=== PATIENT | female | born 1990 | race Caucasian/White ===

== ENCOUNTER 2018-01-29 02:41 | Inpatient (IN) | payer OTHER, MEDICAID ==
[2018-01-29] MEDS ORDERED: BETAMETHASONE IM SYRINGE IM SCH (03:15)
--- NOTE | 2018-01-29 03:26 | PDGENHP ---
History and Physical History and Physical: Care: [facility] HPI: Pt reports "cramping" all day that has progressively been getting worse. Denies bloody show or leaking fluid. Voiding frequently but denies pain with urination. Pt was noted to have a breech presentation at her last visit and was going to be scheduled for a version. Patient is a 27 yo G 1 P 0 @ 35.5 weeks that presents to L&D with complaints of lower abdominal cramping EDC: 02/28/2018 which is based on LMP: 05/24/2017 which is known and consistent with Ultrasound at 13 weeks. Her is complicated by: depression and anxiety, breech presentation, carpal tunnel bilaterally. Traveled to [facility] in May - Zika virus has been noted in the area Review of Systems: Constitutional: Denies any fever, chills, or fatigue HEENT: denies any visual changes, difficulty swallowing, hearing loss Cardiovascular: Denies any chest pain, palpitations, leg swelling Respiratory: denies any cough, wheezing, or shortness of breathe GI: Reports some nausea. Denies vomiting, diarrhea, constipation : denies any dysuria, urgency, frequency, vaginal bleeding Musculoskeletal: denies any muscle or bone pain Skin: denies any rashes Neuro: denies any headache, seizures, lightheadedness, dizziness, or loss of consciousness Psychiatric: Current issues of anxiety and depression being treated with zoloft. HISTORY: Previous OB history: None Past medical history: Migraine without aura, anxiety treated with propanolol and lexapro that she stopped with . Past surgical history: tonsillectomy Social: Denies any alcohol or tobacco. Marijuana use prior to , tested negative 1st trimester. Family history: Not relevant Medications: PNV, zoloft 50 mg daily, magnesium Allergies (list reaction): NKDA LABS: Rh: AB+ ABS: Neg Rubella: Immune HbsAg: NR HIV: NR VDRL: NR 1hr: 103 GC: Neg Chlamydia: Neg Pap: Normal GBS: unknown BMI: (prepreg) 20.5 PHYSICAL EXAM: Constitutional: WN, A&Ox3, anxious HEENT: normocephalic atraumatic, supple Skin: Warm, dry, intact Heart: RRR, no murmur Chest: CTA-B Abdomen: Soft, nontender, gravid SVE: 1/100/-2 cervix anterior and soft, BBOW, breech presentation Extremities:neg edema, negative homans sign Neuro: grossly normal Psych: normal affect assessment: FHT baseline 130 +accels, no decels, moderate variability Contractions: q 3 minutes palpated; not picking up well on monitor Assessment: 1) 27 yo G 1 P 0 with IUP@ 35.5 2) contractions, ripe cervix, breech presentation 3) GBS unknown 4) Cat 1 FHR tracing Plan: 1) Admit to L&D 2) 12.5 mg betamethasone IM q 24 hours 3) CBC, type and screen, PIH labs including protein and creatinine ratio, UA 4) Start IV, fluid bolus of LR 1000 ml 5) 4 mg zofran as needed for nausea 6) Dr Mccormick advised of admission and discussed POC. Reassess for cervical change as indicated to determine need to proceed to csection.
[2018-01-29] MEDS ORDERED: LR 1,000 ML IV SCH ×2 (03:30→07:00)
[2018-01-29] MEDS ORDERED: ONDANSETRON 4 MG/2 ML VIAL IVP PRN ×3 (03:37→06:41)
[2018-01-29] MEDS ORDERED: ONDANSETRON 4 MG/2 ML VIAL ONE ×2 (03:37→07:27)
[2018-01-29 03:41] LABS: PLATELET COUNT 254 10^3/uL (150-400)
[2018-01-29] MEDS ORDERED: fentaNYL 100 MCG/2 ML INJ IVP PRN ×2 (03:52→06:41)
[2018-01-29] MEDS ORDERED: LR 500 ML IV ONE (06:31)
[2018-01-29] MEDS ORDERED: ceFAZolin 2 GM/DEXTROSE 100 ML IV ONE (06:31)
[2018-01-29] MEDS ORDERED: morphINE PF 5 MG/10 ML INJ ONE (06:40)
[2018-01-29] MEDS ORDERED: fentaNYL 100 MCG/2 ML INJ ONE (06:40)
[2018-01-29] MEDS ORDERED: OXYTOCIN 100 UNITS/10 ML VIAL ONE (06:41)
[2018-01-29] MEDS ORDERED: LABETALOL HCL 5 MG/ML 20 ML MDV IVP PRN (06:41)
[2018-01-29] MEDS ORDERED: PHENYLEPHRINE HCL 100 MCG/ML SYR IVP PRN (06:41)
[2018-01-29] MEDS ORDERED: NALOXONE HCL 0.4 MG/ML INJ IVP PRN (06:41)
--- NOTE | 2018-01-29 06:45 | PREANESOB ---
Obstetric Pre-Anesthesia Info - General Info Proposed Procedure: C/S : 1 Para: 0 HAILEY: 02/28/18 Gestational Age: 35 week(s) and 5 day(s) - Info Status: Premature, Mckeon - Labor Status Cervical Dilation per last OB SVE: 5 Section History: Primary Indications for Current Section: Breech Labor Epidural: No Anesthesia Allergies/Adverse Reactions: Allergy/AdvReac Type Severity Reaction Status Date / Time No Known Allergies Allergy Unverified 04/20/12 13:53 Home Medications: Medication Instructions Recorded Magnesium Citrate 500 mg PO DAILY 01/29/18 No.123/Iron/Folic AC 1 tab PO DAILY 01/29/18 Zoloft 50mg (*) PO DAILY 01/29/18 Visit Medications: Generic Name Dose Route Start Last Admin Trade Name Freq PRN Reason Stop Dose Admin Betamethasone Acet/Betameth SodPhos 12 mg 01/29/18 03:15 01/29/18 03:40 Celestone Im Syringe IM 01/30/18 03:16 12 mg Q24H JOHN Administration Fentanyl 50 mcg 01/29/18 03:52 01/29/18 05:07 Sublimaze IVP 02/08/18 03:51 50 mcg Q2HRS PRN Administration Pain, Severe Unable to Take PO Lactated Ringer's 1,000 mls @ 0 mls/hr 01/29/18 03:30 01/29/18 03:39 Lr IV 07/28/18 03:29 1,000 mls CONT JOHN Administration Wide Open Cefazolin Sodium/Dextrose 100 mls @ 200 mls/hr 01/29/18 06:31 01/29/18 06:41 Ancef 2 Gm IV 01/29/18 07:00 100 mls ONCALL ONE Administration Protocol Lactated Ringer's 1,000 mls @ 125 mls/hr 01/29/18 07:00 Lr IV 01/30/18 06:59 CONT JOHN Ondansetron HCl 4 mg 01/29/18 03:37 01/29/18 03:47 Zofran IVP 07/28/18 03:36 4 mg Q4HRS PRN Administration Nausea/Vomiting, Can't Take PO Discontinued Medications Generic Name Dose Route Start Last Admin Trade Name Freq PRN Reason Stop Dose Admin Fentanyl Confirm 01/29/18 06:40 Sublimaze Administered 01/29/18 06:41 Dose 100 mcg .ROUTE .STK-MED ONE Lactated Ringer's 500 mls @ 0 mls/hr 01/29/18 06:31 Lr IV 01/29/18 06:32 ONCE ONE As Directed Morphine Sulfate Confirm 01/29/18 06:40 Morphine Pf 5 Mg/10 Ml Administered 01/29/18 06:41 Dose 5 mg .ROUTE .STK-MED ONE Ondansetron HCl Confirm 01/29/18 03:37 Zofran Administered 01/29/18 03:38 Dose 4 mg .ROUTE .STK-MED ONE Oxytocin Confirm 01/29/18 06:41 Pitocin Administered 01/29/18 06:42 Dose 100 units .ROUTE .STK-MED ONE - Anesthesia History Response to Local Anesthetics: Normal Anesthesia & Operative History: No Prior Problems - Vital Signs Height/Weight (Nursing): Height 161.29 cm Weight 68.492 kg - Focused Exam Neck exam: FROM Mallampati Score: Class 2 Mouth exam: normal dental/mouth exam Pulmonary: no respiratory distress, no rales or rhonchi Cardiovascular: regular rate and rhythym, no murmur, rub, or gallop Labs: 01/29/18 03:33 01/29/18 03:33 Patient ABO/Rh AB POSITIVE 01/29/18 03:33 Uric Acid 5.5 mg/dL (2.5-6.8) 01/29/18 03:33 Total Bilirubin 0.2 mg/dL (0.1-1.4) 01/29/18 03:33 Conjugated Bilirubin 0.0 mg/dL (0.0-0.5) 01/29/18 03:33 Unconjugated Bilirubin 0.2 mg/dL (0.0-1.1) 01/29/18 03:33 AST 22 IU/L (14-46) 01/29/18 03:33 ALT 17 IU/L (9-52) 01/29/18 03:33 Lactate Dehydrogenase 602 IU/L (313-618) 01/29/18 03:33 - Plan Consent Signed and on Chart: Yes Patient/Guardian Understands and Agrees to Plan: Yes
[2018-01-29] MEDS ORDERED: AMMONIA AROMATIC 1 EACH AMP IH ONE (06:52)
[2018-01-29] MEDS ORDERED: LIDOCAINE 1% 300 MG/30 ML SDV ONE (06:52)
[2018-01-29] MEDS ORDERED: OLIVE OIL 118 ML BTL ONE (06:52)
[2018-01-29] MEDS ORDERED: OXYTOCIN 10 UNIT/ML VIAL ONE (06:53)
[2018-01-29] MEDS ORDERED: MISOPROSTOL 200 MCG TAB ONE (06:53)
[2018-01-29] MEDS ORDERED: TERBUTALINE SULFATE 1 MG/ML VIAL ONE (06:53)
[2018-01-29] MEDS ORDERED: PHENYLEPHRINE HCL 100 MCG/ML SYR ONE (07:09)
--- NOTE | 2018-01-29 08:05 | POSTANESTH ---
Post Anesthetic Evaluation Cardiovascular Status: Normal, Stable, Similar to Pre-Op Cond Respiratory Status: Normal, Stable, Similar to Pre-op Cond. Level of Consciousness/Mental Status: Can Participate in Eval, Alert and Oriented Pain Control: Adequate, Prn Tx Ordered Nausea/Vomiting Control: Adequate, Prn Tx Ordered Complications Possibly Related to Anesthesia: None Noted
--- NOTE | 2018-01-29 08:21 | OBDEL ---
Info Type: Primary Presentation at Delivery: Breech L&D Analgesia/Anesthesia Type: Spinal GBS+: No (unknown) Intrapartum Medications: Generic Name Dose Route Start Last Admin Trade Name Freq PRN Reason Stop Dose Admin Betamethasone Acet/Betameth SodPhos 12 mg 01/29/18 03:15 01/29/18 03:40 Celestone Im Syringe IM 01/30/18 03:16 12 mg Q24H JOHN Administration Fentanyl 50 mcg 01/29/18 03:52 01/29/18 05:07 Sublimaze IVP 02/08/18 03:51 50 mcg Q2HRS PRN Administration Pain, Severe Unable to Take PO Lactated Ringer's 1,000 mls @ 0 mls/hr 01/29/18 03:30 01/29/18 03:39 Lr IV 07/28/18 03:29 1,000 mls CONT JOHN Administration Wide Open Ondansetron HCl 4 mg 01/29/18 03:37 01/29/18 03:47 Zofran IVP 07/28/18 03:36 4 mg Q4HRS PRN Administration Nausea/Vomiting, Can't Take PO Discontinued Medications Generic Name Dose Route Start Last Admin Trade Name Freq PRN Reason Stop Dose Admin Cefazolin Sodium/Dextrose 100 mls @ 200 mls/hr 01/29/18 06:31 01/29/18 06:41 Ancef 2 Gm IV 01/29/18 07:00 100 mls ONCALL ONE Administration Protocol Indications for Delivery: Spontaneous Labor, SROM Vaginal Delivery - Labor and Delivery Onset of Contractions Date: 01/29/18 Onset of Contractions Time: 19:00 Operative Report - Delivery Pre-op Diagnoses: breech presentation in labor, SROM Post-op Diagnoses: same History of Prior Section: No Nulliparous Prior to Delivery: Yes Indications for Current Section: Breech Procedure: Unscheduled, Low Transverse Surgeon: Phuong Mccormick Blast Furnace Keeper Helper: Ghislaine Jin Anesthesiologist: Floyd Davis Complications: None IV Fluid (ml): 800 EBL: 900 Corbin Data HAILEY: 02/28/18 Gestational Age: 35 week(s) and 5 day(s) Mckeon Delivery Date: 01/29/18 Delivery Time: 07:04 Sex of : Female Weight (gm): 2510 g Score (1 Min): 8 Score (5 Min): 8 ICD10 Worksheet Patient Problems: Problems Problem Status Onset Breech presentation Acute - ICD10 Problem Qualifiers (1) Breech presentation
--- NOTE | 2018-01-29 08:25 | POSTOPPROG ---
Post Op Note Date of Operation: 01/29/18 Surgeon: Phuong Mccormick Supervisor Tree Trimming: Ghislaine Jin Anesthesiologist: Floyd Escobar Anesthesia: Spinal Pre-op Diagnosis: breech presentation in labor, SROM Post-op Diagnosis: same Indication: same Procedure: primary low transverse c/s Findings: normal appearing uterus, tubes and ovaries, dalila breech presentation Inf/Abcess present in the surg proc area at time of surgery?: No Total fluids administered: 800 Complications: none
[2018-01-29] MEDS ORDERED: OXYTOCIN/RINGERS LACTATE 1,000 ML IV SCH (08:30)
[2018-01-29] MEDS: KETOROLAC 30 MG/1 ML SDV IVP SCH ×3 (09:03→20:52)
--- NOTE | 2018-01-29 11:05 | GOP ---
DATE OF OPERATION: 01/29/2018 SURGEON: Phuong Mccormick MD ARMOR RECONNAISSANCE SPECIALIST: PARKER Edouard. ANESTHESIA: Spinal. ANESTHESIOLOGIST: Floyd Davis MD. PREOPERATIVE DIAGNOSIS: 1. Breech presentation in labor. 2. Spontaneous rupture of membranes. 3. Intrauterine at 35 weeks and 5 days. POSTOPERATIVE DIAGNOSIS: 1. Breech presentation in labor. 2. Spontaneous rupture of membranes. 3. Intrauterine at 35 weeks and 5 days. PROCEDURE PERFORMED: Primary Low Transverse section FINDINGS: Normal appearing uterus, tubes and ovaries. Delivery of infant from dalila breech presentation low in the pelvis. ESTIMATED BLOOD LOSS: 900 mL. INDICATIONS: 27-year-old 1 female at 35 weeks and 5 days presented with contractions and was 1 cm dilated. While she was being observed, her water broke and she quickly progressed to 5 cm. The decision was made to immediately proceed with a primary low transverse section. DESCRIPTION OF PROCEDURE: Written informed consent was reviewed with the patient and obtained. She was taken to the operating room where spinal anesthesia was placed. A urinary catheter was quickly placed. Her abdomen was covered with Betadine. 2 separate bottles were used, but due to the rapidity of her labor, scrubbing was not performed. 2 g of Ancef was administered on- call to the operating room. She was draped in the sterile fashion. A Pfannensteil incision was made and taken down sharply to the fascia. The fascial incision was extended laterally in a sharp fashion. The rectus muscles were dissected away from the fascia in a sharp and blunt fashion. The rectus muscles were in the midline, and the peritoneum was entered bluntly. A bladder blade was inserted. The vesicouterine peritoneum was elevated and incised and a bladder flap was created. The hysterotomy was made sharply and this was extended laterally using the bandage scissors. The buttocks were able to be elevated out of the pelvis and delivered through the hysterotomy. Each leg was able to be flexed at the knee, the hip externally rotated and then delivered. With some fundal pressure the remainder of the body and vertex was easily delivered, with the body being supported by a damp towel. Cord clamping was delayed for 1 minute. The cord was then cut. The was handed to the awaiting nurse practitioner, who was Latasha Glass. A cord segment was obtained, which was later discarded. Cord blood was also obtained. The uterus was massaged and the placenta delivered. The uterus was exteriorized and cleared of all clots and debris x2. The hysterotomy was repaired with 0 Monocryl in a running locked fashion. A 2nd imbricating layer was placed. Hemostasis was obtained with the addition of cautery. The posterior cul-de-sac and gutters were irrigated and cleared of all clots and debris. The uterus was replaced into the abdomen. Evelyn was used to maintain hemostasis on a few of the small areas which were slowly oozing around the hysterotomy repair. The fascia was then closed with 0 PDS in a running fashion. Vinicius's fascia was closed with 3-0 Monocryl in a running fashion. The skin was then closed with 4.0 Monocryl. The incision was covered with Mastisol followed by Steri-Strips and a sterile dressing. Fundal massage expressed some clots from the lower uterine segment. The patient was taken to the recovery room in stable condition. Sponge, lap, and needle counts were correct x2. TOTAL IV FLUIDS: 1000 mL. URINE OUTPUT: 400 mL. /[id number]/MODL MTDD
[2018-01-29] MEDS: ACETAMINOPHEN 325 MG TAB PO SCH ×3 (11:16→20:51)
[2018-01-29] MEDS: IBUPROFEN 600 MG TAB PO SCH ×2 (11:17→15:26)
--- NOTE | 2018-01-29 16:02 | OBPP ---
Progress Note Assessment/Plan: Assessment: s/p PCS at 35 5/7 weeks secondary to malpresentation and active labor POD # 0.5 - pt is stable Plan: Continue routine post-op care Encourage IS and ambulation Adequate uo Cont analgesics as ordered H/H in am 01/3001/29/18 16:03 Subjective/ Course: 01/29/18 16:05 Pt seen and examined. Doing much better, pain is overall well controlled. Heating pad is helping. Pt is not OOB yet, marco liquids, salazar in place and no flatus yet. Minimal bleeding noted. Denies any f/c/n/v/CP or SOB. Pumping so far and baby girl is stable in NICU. Objective: 01/29/18 03:33 01/29/18 03:33 Patient ABO/Rh AB POSITIVE 01/29/18 03:33 Uric Acid 5.5 mg/dL (2.5-6.8) 01/29/18 03:33 Total Bilirubin 0.2 mg/dL (0.1-1.4) 01/29/18 03:33 Conjugated Bilirubin 0.0 mg/dL (0.0-0.5) 01/29/18 03:33 Unconjugated Bilirubin 0.2 mg/dL (0.0-1.1) 01/29/18 03:33 AST 22 IU/L (14-46) 01/29/18 03:33 ALT 17 IU/L (9-52) 01/29/18 03:33 Lactate Dehydrogenase 602 IU/L (313-618) 01/29/18 03:33 Temp Pulse Resp BP Pulse Ox 36.8 C 53 L 16 118/77 99 01/29/18 13:45 01/29/18 13:45 01/29/18 13:45 01/29/18 13:45 01/29/18 15:00 Uterine Position/Fundal Height: Umbilicus -2 Uterine Tone: Firm Physical Exam - Physical Exam General Appearance: WD/WN, alert, no apparent distress Respiratory: lungs clear, normal breath sounds Cardiac/Chest: regular rate, rhythm Abdomen: normal bowel sounds, non-tender, soft, incision (C/D/I with dressing in place), dressing (C/D/I with no shadowing) Extremities: non-tender, normal inspection (with SCDs in place) Skin: normal color, warm/dry Neuro/Psych: alert, normal mood/affect, oriented x 3
[2018-01-30] MEDS: ACETAMINOPHEN 325 MG TAB PO SCH ×4 (02:53→21:41)
[2018-01-30] MEDS: KETOROLAC 30 MG/1 ML SDV IVP SCH (02:53)
[2018-01-30] MEDS: DOCUSATE SODIUM 100 MG CAP PO PRN ×2 (09:16→21:41)
[2018-01-30] MEDS: IBUPROFEN 600 MG TAB PO SCH ×3 (09:19→21:41)
[2018-01-30] MEDS: SIMETHICONE 80 MG TAB CHEW PO PRN (09:20)
--- NOTE | 2018-01-30 11:19 | OBPP ---
Progress Note Assessment/Plan: Assessment: 27 y/o s/p primary C/S at 35.4 weeks ega for active labor with malpresentation POD #1 Baby stable in NICU, pumping Plan: Routine post op/pp care Encourage activity Oral pain meds as needed 01/30/18 11:14 01/30/18 11:24 Subjective/ Course: 01/29/18 16:05 Pt seen and examined. Doing much better, pain is overall well controlled. Heating pad is helping. Pt is not OOB yet, marco liquids, salazar in place and no flatus yet. Minimal bleeding noted. Denies any f/c/n/v/CP or SOB. Pumping so far and baby girl is stable in NICU. 01/30/18 11:19 Doing well today. Salazar was removed this AM (has not voided yet), dressing dry/ intact - will remove in the shower shortly. Tolerating regular diet, ambulating in room. Pain controlled well - just switched to oral pain meds. Passed flatus this am. Baby girl stable in NICU - pumping. 01/30/18 11:24 Objective: 01/30/18 05:55 01/29/18 03:33 Patient ABO/Rh AB POSITIVE 01/29/18 03:33 Uric Acid 5.5 mg/dL (2.5-6.8) 01/29/18 03:33 Total Bilirubin 0.2 mg/dL (0.1-1.4) 01/29/18 03:33 Conjugated Bilirubin 0.0 mg/dL (0.0-0.5) 01/29/18 03:33 Unconjugated Bilirubin 0.2 mg/dL (0.0-1.1) 01/29/18 03:33 AST 22 IU/L (14-46) 01/29/18 03:33 ALT 17 IU/L (9-52) 01/29/18 03:33 Lactate Dehydrogenase 602 IU/L (313-618) 01/29/18 03:33 Temp Pulse Resp BP Pulse Ox 36.2 C 66 18 133/81 H 97 01/30/18 08:50 01/30/18 08:50 01/30/18 08:50 01/30/18 08:50 01/30/18 08:50 Uterine Position/Fundal Height: Umbilicus -1 Uterine Tone: Firm Physical Exam - Physical Exam EENT: PERRL/EOMI Neck: non-tender, full range of motion Respiratory: normal breath sounds Cardiac/Chest: regular rate, rhythm, edema (sml) Abdomen: hypoactive bowel sounds, dressing (dry/intact) Extremities: normal range of motion, non-tender, normal inspection Back: Normal inspection Skin: normal color, warm/dry Neuro/Psych: no motor/sensory deficits, alert, normal mood/affect, oriented x 3
[2018-01-30] MEDS: oxyCODONE IR 5 MG TAB PO PRN ×3 (11:43→19:02)
--- NOTE | 2018-01-30 12:50 | PDPAINCON ---
Pain Management Consultation Patient referred by : Anny - Subjective Pain at rest (/10): 0 Pain with activity (/10): 3 Pain is: low, well controlled Activity: able to ambulate - Objective Technique: spinal opioid Vital signs: stable - Assessment/Plan Assessment/Plan: pain well-controlled, continue current mgmt
[2018-01-31] MEDS: ACETAMINOPHEN 325 MG TAB PO SCH ×4 (03:19→19:46)
[2018-01-31] MEDS: IBUPROFEN 600 MG TAB PO SCH ×4 (03:19→19:47)
[2018-01-31] MEDS ORDERED: SUCROSE 1 EA UDL ONE (04:50)
[2018-01-31] MEDS: oxyCODONE IR 5 MG TAB PO PRN ×5 (06:50→22:05)
[2018-01-31] MEDS: SIMETHICONE 80 MG TAB CHEW PO PRN (08:38)
[2018-01-31] MEDS: DOCUSATE SODIUM 100 MG CAP PO PRN (08:38)
[2018-01-31] MEDS ORDERED: SERTRALINE HCL 25 MG TAB PO SCH (09:00)
[2018-01-31] MEDS ORDERED: BISACODYL 10 MG SUPP PR PRN ×2 (14:24→16:14)
[2018-01-31] MEDS ORDERED: LACTULOSE 20 GM/30 ML UDCUP PO PRN ×2 (14:24→16:14)
[2018-01-31] MEDS ORDERED: POLYETHYLENE GLYCOL 3350 17 GM PKT PO PRN (14:24)
[2018-01-31] MEDS ORDERED: MAGNESIUM HYDROXIDE 30 ML UDCUP PO PRN ×2 (14:24→16:14)
--- NOTE | 2018-01-31 16:20 | OBPP ---
Progress Note Assessment/Plan: Assessment: PPD #2, post csection Establishing Plan: 01/31/18 16:18 1) Request from RN for bowel protocol orders 2) Discharge home tomorrow, baby will likely still be in NICU Subjective/ Course: 01/29/18 16:05 Pt seen and examined. Doing much better, pain is overall well controlled. Heating pad is helping. Pt is not OOB yet, marco liquids, salazar in place and no flatus yet. Minimal bleeding noted. Denies any f/c/n/v/CP or SOB. Pumping so far and baby girl is stable in NICU. 01/30/18 11:19 Doing well today. Salazar was removed this AM (has not voided yet), dressing dry/ intact - will remove in the shower shortly. Tolerating regular diet, ambulating in room. Pain controlled well - just switched to oral pain meds. Passed flatus this am. Baby girl stable in NICU - pumping. 01/30/18 11:24 01/31/18 16:16 Doing well overall. Pain well controlled with medication. Baby is latching and nursing thought tired today. She is also pumping. Ambulating in room. Passing flatus, but no stool. Did have quite a bit of diarrhea at the time of delivery. Objective: 01/30/18 05:55 01/29/18 03:33 Patient ABO/Rh AB POSITIVE 01/29/18 03:33 Uric Acid 5.5 mg/dL (2.5-6.8) 01/29/18 03:33 Total Bilirubin 0.2 mg/dL (0.1-1.4) 01/29/18 03:33 Conjugated Bilirubin 0.0 mg/dL (0.0-0.5) 01/29/18 03:33 Unconjugated Bilirubin 0.2 mg/dL (0.0-1.1) 01/29/18 03:33 AST 22 IU/L (14-46) 01/29/18 03:33 ALT 17 IU/L (9-52) 01/29/18 03:33 Lactate Dehydrogenase 602 IU/L (313-618) 01/29/18 03:33 Temp Pulse Resp BP Pulse Ox 36.4 C 62 14 123/81 H 98 01/31/18 15:00 01/31/18 15:00 01/31/18 15:00 01/31/18 15:00 01/31/18 15:00 incision well approximated, no drainage or redness noted. Uterine Position/Fundal Height: At Umbilicus Uterine Tone: Firm
[2018-01-31] MEDS: SENNOSIDES 1 TAB PO SCH (19:47)
[2018-01-31] MEDS: SERTRALINE HCL 25 MG TAB PO SCH (20:44)
[2018-01-31] MEDS ORDERED: SENNOSIDES/DOCUSATE SODIUM TAB PO SCH (21:00)
[2018-02-01] MEDS: IBUPROFEN 600 MG TAB PO SCH ×4 (02:01→19:48)
[2018-02-01] MEDS: ACETAMINOPHEN 325 MG TAB PO SCH ×4 (02:01→19:47)
[2018-02-01] MEDS: oxyCODONE IR 5 MG TAB PO PRN ×3 (08:02→19:03)
[2018-02-01] MEDS: SENNOSIDES 1 TAB PO SCH ×2 (08:02→19:49)
[2018-02-01] MEDS: DOCUSATE SODIUM 100 MG CAP PO PRN (08:02)
--- NOTE | 2018-02-01 12:39 | OBPP ---
Progress Note Assessment/Plan: Assessment: PPD #2, post csection Establishing Plan: 01/31/18 16:18 1) Request from RN for bowel protocol orders 2) Discharge home tomorrow, baby will likely still be in NICU 02/01/18 12:39 A) PPD #3, post csection Engorged bilaterally P) Reviewed comfort measures to relieve engorgement Baby not sleepy and not nursing well; continue pumping q 2 -3 hours Discharge home tomorrow Subjective/ Course: 01/29/18 16:05 Pt seen and examined. Doing much better, pain is overall well controlled. Heating pad is helping. Pt is not OOB yet, marco liquids, salazar in place and no flatus yet. Minimal bleeding noted. Denies any f/c/n/v/CP or SOB. Pumping so far and baby girl is stable in NICU. 01/30/18 11:19 Doing well today. Salazar was removed this AM (has not voided yet), dressing dry/ intact - will remove in the shower shortly. Tolerating regular diet, ambulating in room. Pain controlled well - just switched to oral pain meds. Passed flatus this am. Baby girl stable in NICU - pumping. 01/30/18 11:24 01/31/18 16:16 Doing well overall. Pain well controlled with medication. Baby is latching and nursing thought tired today. She is also pumping. Ambulating in room. Passing flatus, but no stool. Did have quite a bit of diarrhea at the time of delivery. 02/01/18 12:36 Feeling good today. Pain well controlled with medication. Baby is not latching well today and sleepy. Stable in the NICU. She is engorged today and having some discomfort. Pumping frequently. Passing gas, no bowel movement yet 02/01/18 12:39 Objective: 01/30/18 05:55 01/29/18 03:33 Patient ABO/Rh AB POSITIVE 01/29/18 03:33 Uric Acid 5.5 mg/dL (2.5-6.8) 01/29/18 03:33 Total Bilirubin 0.2 mg/dL (0.1-1.4) 01/29/18 03:33 Conjugated Bilirubin 0.0 mg/dL (0.0-0.5) 01/29/18 03:33 Unconjugated Bilirubin 0.2 mg/dL (0.0-1.1) 01/29/18 03:33 AST 22 IU/L (14-46) 01/29/18 03:33 ALT 17 IU/L (9-52) 01/29/18 03:33 Lactate Dehydrogenase 602 IU/L (313-618) 01/29/18 03:33 Temp Pulse Resp BP Pulse Ox 36.2 C 57 L 18 112/74 95 02/01/18 08:00 02/01/18 10:03 02/01/18 08:00 02/01/18 10:03 02/01/18 10:03 Breasts firm bilaterally, left more tender than the right. Nipples intact bilaterally. Incision site well approximated, steri strips in place. No drainage, or redness noted. Negative Homans Uterine Position/Fundal Height: At Umbilicus Uterine Tone: Firm
[2018-02-01] MEDS: SIMETHICONE 80 MG TAB CHEW PO PRN (14:00)
[2018-02-01] MEDS: SERTRALINE HCL 25 MG TAB PO SCH (20:31)
[2018-02-01 21:08] LABS: PLATELET COUNT 257 10^3/uL (150-400)
--- NOTE | 2018-02-01 21:30 | OBPP ---
Progress Note Assessment/Plan: A/P: 27 P1 POD#d s/p urgent primary LTCS 2/2 breech presentation in active labor - currently with some elevated BPs and a mild headache, but normal PIH labs, urine pending. Hydration encouraged. Will continue to monitor closely. Phuong Mccormick MD, [facility] 02/01/18 21:25 Subjective/ Course: 01/29/18 16:05 Pt seen and examined. Doing much better, pain is overall well controlled. Heating pad is helping. Pt is not OOB yet, marco liquids, salazar in place and no flatus yet. Minimal bleeding noted. Denies any f/c/n/v/CP or SOB. Pumping so far and baby girl is stable in NICU. 01/30/18 11:19 Doing well today. Salazar was removed this AM (has not voided yet), dressing dry/ intact - will remove in the shower shortly. Tolerating regular diet, ambulating in room. Pain controlled well - just switched to oral pain meds. Passed flatus this am. Baby girl stable in NICU - pumping. 01/30/18 11:24 01/31/18 16:16 Doing well overall. Pain well controlled with medication. Baby is latching and nursing thought tired today. She is also pumping. Ambulating in room. Passing flatus, but no stool. Did have quite a bit of diarrhea at the time of delivery. 02/01/18 12:36 Feeling good today. Pain well controlled with medication. Baby is not latching well today and sleepy. Stable in the NICU. She is engorged today and having some discomfort. Pumping frequently. Passing gas, no bowel movement yet 02/01/18 12:39 CTSP due to elevated BPs. Pt feeling extremely fatigued and has a mild headache above her eyes. No vis changes. No epigastric or RUQ pain, though does have some R shoulder pain. Just showered and feels better but still fatigued. Working on . Marco reg diet though has not had much to eat today between pumping and caring for baby. Mod lochia. Ambulating without difficulty. Is having more incisional and cramping discomfort compared to yesterday. 02/01/18 21:27 Objective: 02/01/18 20:38 02/01/18 20:38 Patient ABO/Rh AB POSITIVE 01/29/18 03:33 Uric Acid 4.2 mg/dL (2.5-6.8) 02/01/18 20:38 Total Bilirubin 0.2 mg/dL (0.1-1.4) 02/01/18 20:38 Conjugated Bilirubin 0.1 mg/dL (0.0-0.5) 02/01/18 20:38 Unconjugated Bilirubin 0.1 mg/dL (0.0-1.1) 02/01/18 20:38 AST 31 IU/L (14-46) 02/01/18 20:38 ALT 22 IU/L (9-52) 02/01/18 20:38 Lactate Dehydrogenase 701 IU/L (313-618) H 02/01/18 20:38 Temp Pulse Resp BP Pulse Ox 36.5 C 69 18 145/89 H 96 02/01/18 20:05 02/01/18 20:05 02/01/18 20:05 02/01/18 20:05 02/01/18 20:05 gen - pleasant female, NAD CV - RRR chest - CTAB abd - + BS, fundus firm at u-2 and appropriately tender. inc - C/D/I with steri strips, no signs of infection ext - 2+ pitting pedal edema bilaterally, no calf tenderness, addy's neg Uterine Position/Fundal Height: Umbilicus -2 Uterine Tone: Firm
[2018-02-02] MEDS: oxyCODONE IR 5 MG TAB PO PRN ×6 (00:51→18:08)
[2018-02-02] MEDS: IBUPROFEN 600 MG TAB PO SCH ×3 (02:05→14:21)
[2018-02-02] MEDS: ACETAMINOPHEN 325 MG TAB PO SCH ×3 (02:06→14:21)
[2018-02-02] MEDS: SENNOSIDES 1 TAB PO SCH ×2 (08:01→17:47)
[2018-02-02 09:14] VITALS: BP 120/80
--- NOTE | 2018-02-02 10:34 | OBPP ---
Progress Note Assessment/Plan: Assessment: PPD #2, post csection Establishing Plan: 01/31/18 16:18 1) Request from RN for bowel protocol orders 2) Discharge home tomorrow, baby will likely still be in NICU 02/01/18 12:39 A) PPD #3, post csection Engorged bilaterally P) Reviewed comfort measures to relieve engorgement Baby not sleepy and not nursing well; continue pumping q 2 -3 hours Discharge home tomorrow 02/02/18 10:35 A: PPD #4; post csection Establishing ; engorgement resolved Discharge home today; will be rooming in with baby until discharged Subjective/ Course: 01/29/18 16:05 Pt seen and examined. Doing much better, pain is overall well controlled. Heating pad is helping. Pt is not OOB yet, marco liquids, salazar in place and no flatus yet. Minimal bleeding noted. Denies any f/c/n/v/CP or SOB. Pumping so far and baby girl is stable in NICU. 01/30/18 11:19 Doing well today. Salazar was removed this AM (has not voided yet), dressing dry/ intact - will remove in the shower shortly. Tolerating regular diet, ambulating in room. Pain controlled well - just switched to oral pain meds. Passed flatus this am. Baby girl stable in NICU - pumping. 01/30/18 11:24 01/31/18 16:16 Doing well overall. Pain well controlled with medication. Baby is latching and nursing thought tired today. She is also pumping. Ambulating in room. Passing flatus, but no stool. Did have quite a bit of diarrhea at the time of delivery. 02/01/18 12:36 Feeling good today. Pain well controlled with medication. Baby is not latching well today and sleepy. Stable in the NICU. She is engorged today and having some discomfort. Pumping frequently. Passing gas, no bowel movement yet 02/01/18 12:39 CTSP due to elevated BPs. Pt feeling extremely fatigued and has a mild headache above her eyes. No vis changes. No epigastric or RUQ pain, though does have some R shoulder pain. Just showered and feels better but still fatigued. Working on . Marco reg diet though has not had much to eat today between pumping and caring for baby. Mod lochia. Ambulating without difficulty. Is having more incisional and cramping discomfort compared to yesterday. 02/01/18 21:27 02/02/18 10:32 Tired but overall doing well. Having cramping and incisional pain. Taking pain medication and using heating pad. Trying to get more rest today. Milk is in, and engorgement has resolved. Nipples are a little sore. Baby is under bili lights today. Starting to latch and feed more successfully. Patient continues to pump Objective: 02/01/18 20:38 02/01/18 20:38 Patient ABO/Rh AB POSITIVE 01/29/18 03:33 Uric Acid 4.2 mg/dL (2.5-6.8) 02/01/18 20:38 Total Bilirubin 0.2 mg/dL (0.1-1.4) 02/01/18 20:38 Conjugated Bilirubin 0.1 mg/dL (0.0-0.5) 02/01/18 20:38 Unconjugated Bilirubin 0.1 mg/dL (0.0-1.1) 02/01/18 20:38 AST 31 IU/L (14-46) 02/01/18 20:38 ALT 22 IU/L (9-52) 02/01/18 20:38 Lactate Dehydrogenase 701 IU/L (313-618) H 02/01/18 20:38 Temp Pulse Resp BP Pulse Ox 36.1 C 60 16 120/80 96 02/02/18 09:11 02/02/18 09:11 02/02/18 02:54 02/02/18 09:11 02/02/18 09:11 Breasts: Full but not firm, nipples intact bilaterall Incision site well approximated. No redness or drainage. Steri strips in place Neg Sandy's sign Uterine Position/Fundal Height: Umbilicus -1 Uterine Tone: Firm
--- NOTE | 2018-02-02 10:37 | OBGCSDC ---
General Delivery Information - General Info : 1 Para: 1 Abortions: 0 Type: Primary L&D Analgesia/Anesthesia Type: Spinal Admission Date: 01/29/18 Labs: Patient ABO/Rh AB POSITIVE 01/29/18 03:33 Hct 36.3 % (38.0-47.0) L 02/01/18 20:38 - Hospital Course : 01/29/18 16:05 Pt seen and examined. Doing much better, pain is overall well controlled. Heating pad is helping. Pt is not OOB yet, lesly liquids, salazar in place and no flatus yet. Minimal bleeding noted. Denies any f/c/n/v/CP or SOB. Pumping so far and baby girl is stable in NICU. 01/30/18 11:19 Doing well today. Salazar was removed this AM (has not voided yet), dressing dry/ intact - will remove in the shower shortly. Tolerating regular diet, ambulating in room. Pain controlled well - just switched to oral pain meds. Passed flatus this am. Baby girl stable in NICU - pumping. 01/30/18 11:24 01/31/18 16:16 Doing well overall. Pain well controlled with medication. Baby is latching and nursing thought tired today. She is also pumping. Ambulating in room. Passing flatus, but no stool. Did have quite a bit of diarrhea at the time of delivery. 02/01/18 12:36 Feeling good today. Pain well controlled with medication. Baby is not latching well today and sleepy. Stable in the NICU. She is engorged today and having some discomfort. Pumping frequently. Passing gas, no bowel movement yet 02/01/18 12:39 CTSP due to elevated BPs. Pt feeling extremely fatigued and has a mild headache above her eyes. No vis changes. No epigastric or RUQ pain, though does have some R shoulder pain. Just showered and feels better but still fatigued. Working on . Lesly reg diet though has not had much to eat today between pumping and caring for baby. Mod lochia. Ambulating without difficulty. Is having more incisional and cramping discomfort compared to yesterday. 02/01/18 21:27 02/02/18 10:32 Tired but overall doing well. Having cramping and incisional pain. Taking pain medication and using heating pad. Trying to get more rest today. Milk is in, and engorgement has resolved. Nipples are a little sore. Baby is under bili lights today. Starting to latch and feed more successfully. Patient continues to pump - Delivery Providers Surgeon: Phuong Mccormick Physician Coding Specialist: Ghislaine Jin Anesthesiologist: Floyd Davis - Delivery Indications for Current Section: Breech Surgical Procedures: Unscheduled, Low Transverse Intra-op Complications: None EBL: 900 Data HAILEY: 02/28/18 Gestational Age: 36 week(s) and 2 day(s) [place] Delivery Date: 01/29/18 Delivery Time: 07:04 Sex of Infant: Female Kirkman Weight (gm): 2510 g Score (1 Min): 8 Score (5 Min): 8 Discharge Information - Discharge Information Condition: Good Instruction/Follow Up: One Week, Two Weeks, Four Weeks, Six Weeks
== END 2018-02-02 18:00 | disposition home or self-care (01) | DRG 788 ==
LOC: OBSVTOIN 02:41 → FLD 02:41 → FOB 10:30
PROVIDERS: ADMIT Advanced Practice Midwife; ATTEND Advanced Practice Midwife
PROC: 10D00Z1 Extraction of Products of Conception, Low, Open Approach (ICD-10-PCS; principal; 2018-01-29)
DX: O32.1XX0 Maternal care for breech presentation, not applicable or unspecified (principal); Z3A.36 36 weeks gestation of pregnancy; Z37.0 Single live birth
CPT/HCPCS: J0690; J0702; J1885; J2274; J2370; J2405; J2590; J3010; J3105

== ENCOUNTER 2018-04-26 02:44 | Emergency (ER) | payer OTHER, MEDICAID ==
[2018-04-26] MEDS ORDERED: SUMAtriptan 50 MG TAB PO ONE (03:18)
[2018-04-26] MEDS ORDERED: IBUPROFEN 200 MG TAB PO ONE (03:18)
[2018-04-26] MEDS ORDERED: ACETAMINOPHEN 500 MG TAB PO ONE (03:18)
--- NOTE | 2018-04-26 03:20 | EDPHY ---
H & P Stated Complaint: med clear for halfway Time Seen by Provider: 04/26/18 02:58 HPI/ROS: HPI The patient presents for medical clearance for halfway with right shoulder pain. She was arrested after a domestic dispute. She denies any complaints until she was placed under arrest and then developed right-sided shoulder pain which she feels is related to her known cervical radiculopathy. The pain is aching, constant, moderate in severity. It does not radiate. Since she has been in the emergency department she feels that she is developing a migraine headache. The headache is bifrontal, aching in nature, moderate in severity as well. She admits to drinking alcohol tonight. REVIEW OF SYSTEMS 10 systems were reviewed and negative with the exception of the elements mentioned in the history of present illness. PMHx: Migraine-type headache, history of depression Soc Hx: Lives with her partner and 3-month-old baby PHYSICAL General Appearance: Alert, tearful Eyes: Pupils equal and round no pallor or injection ENT, Mouth: Mucous membranes moist Respiratory: There are no retractions, lungs are clear to auscultation Cardiovascular: Regular rate and rhythm Gastrointestinal: Abdomen is soft and non-tender, no masses, bowel sounds normal Neurological: A&O, cranial nerves 2-12 intact, moves all extremities Skin: Warm and dry, no rashes Musculoskeletal: Neck is supple with tenderness of both of her upper trapezius muscles bilaterally, there is no midline cervical spinal tenderness Extremities: symmetrical, full range of motion Psychiatric: Patient is oriented X 3, there is no agitation Source: Patient, Police, EMS Exam Limitations: No limitations - Personal History LMP (Females 10-55): Post Menopausal Current Tetanus/Diphtheria Vaccine: No Current Tetanus Diphtheria and Acellular Pertussis (TDAP): No Tetanus Vaccine Date: 2006 - Medical/Surgical History Hx Asthma: No Hx Chronic Respiratory Disease: No Hx Diabetes: No Hx Cardiac Disease: No Hx Renal Disease: No Hx Cirrhosis: No Hx Alcoholism: No Hx HIV/AIDS: No Hx Splenectomy or Spleen Trauma: No Other PMH: tonsils. depression - Social History Smoking Status: Never smoked Constitutional: Initial Vital Signs Temperature (C) 36.7 C 04/26/18 02:48 Heart Rate 111 H 04/26/18 02:48 Respiratory Rate 20 04/26/18 02:48 Blood Pressure 128/91 H 04/26/18 02:48 O2 Sat (%) 94 04/26/18 02:48 O2 Delivery Mode Room Air Allergies/Adverse Reactions: No Known Allergies Allergy (Unverified 04/26/18 02:50) Home Medications: Medication Instructions Recorded Zoloft 50mg (*) PO DAILY 01/29/18 Acetaminophen [Tylenol 325mg (*)] 650 mg PO Q6H #120 tab 02/02/18 Ibuprofen [Motrin (*)] 600 mg PO Q6H #120 tab 02/02/18 Sertraline HCl [Zoloft 25mg (*)] 75 mg PO HS tab 02/02/18 Medical Decision Making Differential Diagnosis: 27-year-old female presents for medical clearance for halfway. When being arrested , she began to complain of right-sided shoulder pain. She does have a history of what sounds like a cervical radiculopathy. I have ordered ibuprofen and Tylenol for the patient. She then began to develop a migraine headache and I gave her a dose of sumatriptan per her request. She was discharged in medically clear for halfway, however on her way out she began to hyperventilate and became lightheaded. She returned to her room, vital signs were checked and were unremarkable. If she was worried she was having a heart attack, however did not have any chest pain though continued to have hyperventilation. She was discharged to halfway. - Data Points Medications Given: Discontinued Medications Acetaminophen (Tylenol) 1,000 mg PO EDNOW ONE Stop: 04/26/18 03:19 Last Admin: 04/26/18 03:32 Dose: 1,000 mg Ibuprofen (Motrin) 400 mg PO EDNOW ONE Stop: 04/26/18 03:19 Last Admin: 04/26/18 03:32 Dose: 400 mg Sumatriptan Succinate (Imitrex) 100 mg PO ONCE ONE Stop: 04/26/18 03:19 Last Admin: 04/26/18 03:31 Dose: 100 mg Departure - Departure Disposition: Home, Routine, Self-Care Clinical Impression: Medical clearance for incarceration, Cervical radiculopathy, Migraine headache Condition: Good Instructions: Migraine Headache (ED), Cervical Radiculopathy (ED) Additional Instructions: Your medically clear for halfway. Referrals: Patient,NotPresent [Unknown] - As per Instructions
[2018-04-26 04:08] VITALS: BP 131/74
== END 2018-04-26 04:14 | disposition home or self-care (01) ==
LOC: EDUNIT#
DX: G43.909 Migraine, unspecified, not intractable, without status migrainosus (principal); M54.12 Radiculopathy, cervical region

== ENCOUNTER 2018-04-28 17:37 | Emergency (ER) | payer OTHER, MEDICAID ==
--- NOTE | 2018-04-28 17:49 | EDPHY ---
H & P Time Seen by Provider: 04/28/18 17:40 HPI/ROS: Chief complaint. M1 HPI. This patient was seen by Dr. Brewer and not by me ROS 10 systems were reviewed and negative with the exception of the elements mentioned in the history of present illness Smoking Status: Never smoked Constitutional: Initial Vital Signs Temperature (C) 36.7 C 04/28/18 17:37 Heart Rate 78 04/28/18 17:37 Respiratory Rate 16 04/28/18 17:37 Blood Pressure 137/87 H 04/28/18 17:37 O2 Sat (%) 96 04/28/18 17:37 O2 Delivery Mode Room Air Allergies/Adverse Reactions: No Known Allergies Allergy (Unverified 04/26/18 02:50) Home Medications: Medication Instructions Recorded Zoloft 50mg (*) PO DAILY 01/29/18 Acetaminophen [Tylenol 325mg (*)] 650 mg PO Q6H #120 tab 02/02/18 Ibuprofen [Motrin (*)] 600 mg PO Q6H #120 tab 02/02/18 Sertraline HCl [Zoloft 25mg (*)] 75 mg PO HS tab 02/02/18 Medical Decision Making - Data Points Laboratory Results: Laboratory Results 04/28/18 18:17 04/28/18 18:17 04/28/18 04/28/18 04/28/18 20:14 18:17 18:17 WBC 6.72 10^3/uL 10^3/uL (3.80-9.50) RBC 5.19 10^6/uL 10^6/uL (4.18-5.33) Hgb 15.5 g/dL g/dL (12.6-16.3) Hct 46.3 % % (38.0-47.0) MCV 89.2 fL fL (81.5-99.8) MCH 29.9 pg pg (27.9-34.1) MCHC 33.5 g/dL g/dL (32.4-36.7) RDW 12.4 % % (11.5-15.2) Plt Count 210 10^3/uL 10^3/uL (150-400) MPV 11.2 fL fL (8.7-11.7) Neut % (Auto) 73.1 % % (39.3-74.2) Lymph % (Auto) 18.9 % % (15.0-45.0) [place] % (Auto) 7.1 % % (4.5-13.0) Eos % (Auto) 0.3 % L % (0.6-7.6) Baso % (Auto) 0.3 % % (0.3-1.7) Nucleat RBC Rel Count 0.0 % % (0.0-0.2) Absolute Neuts (auto) 4.91 10^3/uL 10^3/uL (1.70-6.50) Absolute Lymphs (auto) 1.27 10^3/uL 10^3/uL (1.00-3.00) Absolute Monos (auto) 0.48 10^3/uL 10^3/uL (0.30-0.80) Absolute Eos (auto) 0.02 10^3/uL L 10^3/uL (0.03-0.40) Absolute Basos (auto) 0.02 10^3/uL 10^3/uL (0.02-0.10) Absolute Nucleated RBC 0.00 10^3/uL 10^3/uL (0-0.01) Immature Gran % 0.3 % % (0.0-1.1) Immature Gran # 0.02 10^3/uL 10^3/uL (0.00-0.10) Sodium 138 mEq/L mEq/L (135-145) Potassium 3.8 mEq/L mEq/L (3.5-5.2) Chloride 104 mEq/L mEq/L (97-110) Carbon Dioxide 24 mEq/l mEq/l (22-31) Anion Gap 10 mEq/L mEq/L (6-14) BUN 9 mg/dL mg/dL (7-23) Creatinine 0.6 mg/dL mg/dL (0.6-1.0) Estimated GFR > 60 Glucose 133 mg/dL H mg/dL (70-100) Calcium 9.7 mg/dL mg/dL (8.5-10.4) Urine Opiates Screen NEGATIVE (NEGATIVE) Urine Barbiturates NEGATIVE (NEGATIVE) Ur Phencyclidine Scrn NEGATIVE (NEGATIVE) Ur Amphetamine Screen NEGATIVE (NEGATIVE) U Benzodiazepines Scrn NEGATIVE (NEGATIVE) Urine Cocaine Screen NEGATIVE (NEGATIVE) U Marijuana (THC) Screen NON-NEGATIVE H (NEGATIVE) Departure - Departure Clinical Impression: Suicidal ideation, Severe major depression Condition: Good Referrals: Patient,NotPresent [Primary Care Provider] - As per Instructions
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
[2018-04-28 18:35] LABS: PLATELET COUNT 210 10^3/uL (150-400)
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
[2018-04-29 01:19] VITALS: BP 121/85
== END 2018-04-28 23:44 | disposition home or self-care (01) ==
PROC: GZ11ZZZ Psychological Tests, Personality and Behavioral (ICD-10-PCS; principal; 2018-04-28)
DX: R45.851 Suicidal ideations (principal); F32.9 Major depressive disorder, single episode, unspecified
CPT/HCPCS: 80305